=== PATIENT | female | born 1995 | race Caucasian/White ===

== ENCOUNTER 2016-08-08 09:39 | Emergency (ER) | payer OTHER | END 2016-08-08 10:45 | disposition home or self-care (01) | LOC: FER 09:39 | DX: J45.901 Unspecified asthma with (acute) exacerbation (principal); F17.200 Nicotine dependence, unspecified, uncomplicated; Z79.899 Other long term (current) drug therapy | CPT/HCPCS: 71020; 94640; J1100 ==

== ENCOUNTER 2021-09-26 16:04 | Emergency (ER) | payer OTHER ==
[~2021-09-26 16:04] MED LIST: PREDNISONE 10MG10 MG PO; VENTOLIN HFA IN18 GM INH; ZPAK PO
[2021-09-26] MEDS ORDERED: IBUPROFEN800 MG PO (19:35)
== END 2021-09-26 19:40 | disposition home or self-care (01) ==
LOC: FER 16:04
DX: S32.018A Other fracture of first lumbar vertebra, initial encounter for closed fracture (principal); S80.212A Abrasion, left knee, initial encounter; V47.5XXA Car driver injured in collision with fixed or stationary object in traffic accident, initial encounter
CPT/HCPCS: 72125; 72128; 72131